=== PATIENT | female | born 1960 | race Caucasian/White ===

== ENCOUNTER → 2017-07-26 16:24 | Outpatient (CLI) | payer BC, SELFPAY ==
--- NOTE | 2017-07-26 16:33 | XR_ITS ---
XR chest 2V HISTORY: ITS.REASON: COUGH,FEVER,ASTHMA ORDERING PHYSICIAN: Branden Gavin PATIENT AGE: 57 years COMPARISON: None available FINDINGS: The cardiomediastinal silhouette and pulmonary vascularity are within normal limits. No lobar consolidation or collapse is evident. There is evidence of old granulomatous disease. A focal area of increased density is present in the right upper lobe overlying the vertebrae of anteriorly. This could be related to an area of postinflammatory scarring however, developing spiculated lesion is an additional consideration. There are no old films available for comparison. Since no old films are available then, would recommend chest CT for further evaluation especially if the patient is a smoker or has been exposed to secondhand smoke.. There is mild kyphosis of the upper thoracic spine with minimal wedging involving what appears to represent T5 and T6 age indeterminate. IMPRESSION: 1. No acute finding. 2. Irregular density right upper lobe which could be due to scarring or developing nodule. Follow-up suggested. 3. Old granulomatous disease 4. Minimal wedging of T5 and T6
== END ==
PROVIDERS: PCP Internal Medicine; Visit Provider Internal Medicine
DX: R05 Cough (principal); R50.9 Fever, unspecified; J45.909 Unspecified asthma, uncomplicated
CPT/HCPCS: 71046

== ENCOUNTER → 2023-02-08 11:22 | Outpatient (CLI) | payer BC, SELFPAY ==
--- NOTE | 2023-02-08 11:33 | XR_ITS ---
FINAL REPORT CLINICAL HISTORY: ASTHMA AND COUGH COMPARISON: July 2017 FINDINGS: PA and lateral views of the chest were obtained. The cardiac and mediastinal silhouettes are within normal limits. There is granulomatous disease and emphysematous change. The lungs are otherwise clear. There is no pleural effusion or pneumothorax. No acute osseous abnormality is identified. IMPRESSION: No radiographic evidence of acute cardiac or pulmonary disease. Reviewed, Interpreted and Dictated by Gloria Sands MD Transcribed by Evans Anderson Authenticated and [facility]
[2023-02-08 13:14] LABS: Basophils % 0.6 % (0.1-2.0); Eosinophils # 0.1 K/mm3 (0.0-0.4); Eosinophils % 2.5 % (0.1-12.0); Hematocrit 34.9 % (37.0-47.0); Hemoglobin 11.3 g/dL (12.2-16.2); Lymphocytes # 1.2 K/mm3 (0.7-4.5); Lymphocytes % 30.1 % (10-50); Mean Corpuscular HGB Conc 32.2 g/dL (31.8-35.4); Mean Corpuscular Hemoglobin 28.5 pg (27.0-31.2); Mean Corpuscular Volume 88.6 fl (81-99); Mean Platelet Volume 9.3 fl (7.4-10.4); Monocytes # 0.2 K/mm3 (0.1-1.0); Monocytes % 4.8 % (1.7-9.3); Neutrophils # 2.4 K/mm3 (1.8-7.8); Platelet Count 260 K/mm3 (142-424); Red Blood Count 3.94 M/mm3 (4.20-5.40); Red Cell Distribution Width 13.3 % (11.5-17.5); White Blood Count 3.8 K/mm3 (4.8-10.8)
[2023-02-08 13:45] LABS: Alanine Aminotransferase 31 U/L (12-78); Albumin Level 4.3 g/dl (3.5-5.0); Albumin/Globulin Ratio 1.4 (1.1-1.8); Alkaline Phosphatase 112 U/L (38-126); Anion Gap 10.6 mEq/L (5-15); Aspartate Amino Transferase 39 U/L (14-36); Bilirubin,Total 0.4 mg/dl (0.2-1.3); Blood Urea Nitrogen 18 mg/dl (7-17); Calcium 9.3 mg/dl (8.4-10.2); Carbon Dioxide 30 mmol/L (22.0-30.0); Chloride 105 mmol/L (98-107); Chol/HDL Ratio 3.1 (1-3.5); Cholesterol 248 mg/dl (140-200); Estimated Glomerular Filt Rate 50 ml/min (>60); GFR (African American) 61 ML/MIN (>60); Glucose 89 mg/dl (74-100); HDL Cholesterol 79 mg/dl (40-60); Potassium 4.6 mmoL/L (3.5-5.1); Sodium 141 mmol/L (136-145); Total Protein,Serum 7.3 g/dl (6.3-8.2); Triglycerides 61 mg/dl (30-150); VLDL Cholesterol 12 mg/dL (0-40)
[2023-02-08 13:56] LABS: Direct LDL Cholesterol 128.49 mg/dL (100-129)
[2023-02-08 14:16] LABS: Thyroid Stimulating Hormone 0.85 uIU/mL (0.465-4.68)
[2023-02-08 14:35] LABS: Vitamin B12 848 pg/mL (239-931)
== END ==
PROVIDERS: PCP Internal Medicine; Visit Provider Internal Medicine
DX: J45.909 Unspecified asthma, uncomplicated (principal); R05.9 Cough, unspecified
CPT/HCPCS: 71046; 80053; 80061; 82607; 84443; 85025

== ENCOUNTER 2023-05-21 14:37 | Emergency (ER) | payer BC, SELFPAY ==
[2023-05-21 14:45] VITALS: BP 118/67; PULSE 76; RESP 18; TEMP 36.7; O2SAT 96; BMI 25.2
--- NOTE | 2023-05-21 15:04 | EXP.UTC ---
Discharge Plan Disposition Patient Disposition: Home, Self-Care Condition: Good Prescriptions Prescriptions: New amoxicillin [amoxicillin] 500 mg tablet 500 mg PO BID 10 Days Qty: 20 0RF ofloxacin 0.3 % drops See Rx Instructions .ROUTE .COMPLEX Qty: 5 0RF Rx Instructions: put 1 drp into affected eye(s) every 4 h x 2 days, then 1 drp 4 times/day days 3-7 Referrals Follow up/Referrals: Branden Gavin MD [Primary Care Provider] - See instructions Activity Restrictions/Add. Instructions Additional Instructions/Restrictions: Start antibiotic patient to take as ordered for a full length of time even if you feel better. Sinus infections do not get better overnight. It may take 2-3 days to notice much improvement so be sure to use conservative measures as discussed for symptoms. Flonase 1 spray each nostril daily to help with nasal congestion, sinus and ear pressure/information Increase fluids Humidifier/vaporizer as needed Tylenol and ibuprofen as needed for fever or pain. If symptoms do not improve or get worse return or be seen in the ER Follow-up with primary care this week Clinical Impressions Clinical Impression: Iva eye disease of both eyes Sinus infection Qualifiers: Sinusitis location: maxillary Chronicity: acute Recurrence: non-recurrent Qualified Code(s): J01.00 - Acute maxillary sinusitis, unspecified Instructions Patient Instructions: DI for Sinusitis, DI for Conjunctivitis Discharge ED Provider: Oliver ([facility] [facility] [place] General Stated complaint: bilateral eye redness Mode of Arrival: Ambulatory Source of Information: Patient Limitations: No Limitations Time Seen by Provider: 05/21/23 15:04 Description of Symptoms (Recalled from Triage Doc. by RN): bilateral pink eye, and sinus infection. She has sinus pressure. HEENT Symptoms (Recalled from RN notes): Yes Resp Symptoms (Recalled from RN notes): No Skin Symptoms (Recalled from RN notes): No MS Symptoms (Recalled from RN notes): No Functional Status (Recalled from RN notes): n/a History of Present Illness Provider Complaint: 62 yr old female presents for becca eye redness, green drainage, sinus pressure,sinus pain and ear pain Related Data Previous Rx's Medication Instructions Recorded amoxicillin 500 mg tablet 500 mg PO BID 10 days #20 tabs 05/21/23 ofloxacin 0.3 % eye drops See Rx Instructions ophthalmic 05/21/23 (eye) .COMPLEX #5 mL Allergies Allergy/AdvReac Type Severity Reaction Status Date / Time Sulfamethoxazole Allergy Mild Uncoded 05/21/23 14:55 Worker's Comp Is this a Worker's Comp case?: [facility] Disclaimer: The information contained in this section may have been updated after the patient was seen, as this information can be updated by other users. Social History , [employer] DEVELOPER) Smoking Status: Never smoker alcohol intake: never substance use type: denies use current occupational status: employed Travel in the last 8 weeks: None household members: family housing: house ROS Obtained: Yes All systems reviewed & no additional complaints except as documented Constitutional Constitutional: Reports system reviewed and no additional complaints, except as documented and Reports as per HPI Eyes Eyes: Reports system reviewed and no additional complaints, except as documented, Reports as per HPI, Reports eye discharge and Reports itchy eyes ENT Ears, Nose, Mouth, and Throat: Reports system reviewed and no additional complaints, except as documented, Reports as per HPI, Reports nasal congestion, Reports nasal discharge, Reports sinus pain, Reports sinus pressure and Reports sore throat Cardiovascular Cardiovascular: Reports system reviewed and no additional complaints, except as documented Respiratory Respiratory: Reports system reviewed and no additional complaints, except as documented Integumentary/Breasts Skin/Breast: Reports system reviewed
[2023-05-21 15:25] VITALS: BP 118/67; PULSE 76; RESP 18; TEMP 36.7; O2SAT 96
== END 2023-05-21 15:25 | disposition home or self-care (01) ==
PROVIDERS: Emergency Provider Nurse Practitioner Family; PCP Internal Medicine
DX: J01.00 Acute maxillary sinusitis, unspecified (principal); H10.33 Unspecified acute conjunctivitis, bilateral; H92.03 Otalgia, bilateral
CPT/HCPCS: 99204; 99212; G0463

== ENCOUNTER 2023-11-09 11:03 | Outpatient (CLI) | payer BC, SELFPAY ==
--- NOTE | 2023-11-09 11:07 | XR_ITS ---
FINAL REPORT CLINICAL HISTORY: LT LEG INJURY 11/07/23,LT LEG AND ANKLE PAIN COMPARISON: None FINDINGS: 3 images of the left knee were obtained. There is no evidence of fracture or dislocation. The joint spaces are intact. There is no soft tissue abnormality identified. IMPRESSION: No acute bony abnormality. Reviewed, Interpreted and Dictated by Arjun Pritchett MD Transcribed by Ivy Bentley Authenticated and [facility]
--- NOTE | 2023-11-09 11:07 | XR_ITS ---
FINAL REPORT CLINICAL HISTORY: LT LEG INJURY 11/07/23,LT LEG AND ANKLE PAIN COMPARISON: None FINDINGS: Two images of the left tibia and fibula were obtained. There is no evidence of fracture or dislocation. The joint spaces are intact. There is no soft tissue abnormality identified. IMPRESSION: No acute bony abnormality. Reviewed, Interpreted and Dictated by Arjun Pritchett MD Transcribed by Ivy Bentley Authenticated and [facility]
--- NOTE | 2023-11-09 11:07 | XR_ITS ---
FINAL REPORT CLINICAL HISTORY: LT LEG INJURY 11/07/23,LT LEG AND ANKLE PAIN COMPARISON: None FINDINGS: 3 images of the left ankle were obtained. There is no evidence of fracture or dislocation. The joint spaces are intact. There is no soft tissue abnormality identified. IMPRESSION: No acute bony abnormality. Reviewed, Interpreted and Dictated by Arjun Pritchett MD Transcribed by Ivy Bentley Authenticated and [facility]
== END 2023-11-09 23:59 | disposition home or self-care (01) ==
LOC: RAD 11:04
PROVIDERS: PCP Internal Medicine; Visit Provider Internal Medicine
DX: M25.571 Pain in right ankle and joints of right foot (principal); M25.572 Pain in left ankle and joints of left foot; M79.605 Pain in left leg; S89.92XA Unspecified injury of left lower leg, initial encounter
CPT/HCPCS: 73562; 73590; 73610

== ENCOUNTER 2024-02-08 17:26 | Emergency (ER) | payer BC, SELFPAY ==
[2024-02-08 17:30] VITALS: BP 137/66; PULSE 72; RESP 18; TEMP 36.6; O2SAT 97; BMI 24.7
--- NOTE | 2024-02-08 17:37 | ED_ITS ---
Discharge Plan Disposition Patient Disposition: Home, Self-Care Condition: Good Prescriptions Prescriptions: New mupirocin 2 % ointment 1 applic topical TID 7 Days Qty: 15 0RF clindamycin HCl 300 mg capsule 300 mg PO Q8H Qty: 30 0RF Referrals Follow up/Referrals: Branden Gavin MD [Primary Care Provider] - See instructions Activity Restrictions/Add. Instructions Additional Instructions/Restrictions: Keep the affected area clean and dry. Follow up with your regular doctor. Take the antibiotics as directed and apply the topical antibiotics as directed. Apply warm wet compresses to the affected area three or four times per day. GO TO THE ER FOR ANY WORSENING SYMPTOMS Clinical Impressions Clinical Impression: Abscess of skin, Cellulitis of right arm Instructions Patient Instructions: Cellulitis, DI for Skin Abscess Discharge ED Provider: Primitivo Ayala [facility] General Stated complaint: right arm insect bite Time Seen by Provider: 02/08/24 17:37 History of Present Illness Provider Complaint: She states that for the past 4 days she has had a red swollen area on her right arm. She has redness around the site. Related Data Previous Rx's Medication Instructions Recorded clindamycin HCl 300 mg capsule 300 mg PO Q8H #30 caps 02/08/24 mupirocin 2 % topical ointment 1 applic topical TID 7 days #15 02/08/24 grams Allergies Allergy/AdvReac Type Severity Reaction Status Date / Time Sulfa (Sulfonamide Allergy Verified 02/08/24 17:45 Antibiotics) [facility] Disclaimer: The information contained in this section may have been updated after the patient was seen, as this information can be updated by other users. 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) Smoking Status: Never smoker alcohol intake: never substance use type: denies use current occupational status: employed Travel in the last 8 weeks: None household members: family housing: house ROS Obtained: Yes All systems reviewed & no additional complaints except as documented Constitutional Constitutional: Denies chills and Denies fever(s) Eyes Eyes: Denies eye discharge ENT Ears, Nose, Mouth, and Throat: Denies dizziness, Denies otalgia and Denies sore throat Cardiovascular Cardiovascular: Denies chest pain Respiratory Respiratory: Denies shortness of breath, Denies chest congestion, Denies cough, Denies stridor and Denies wheezing Gastrointestinal Gastrointestingal: Denies nausea or vomiting Musculoskeletal Musculoskeletal: Reports system reviewed and no additional complaints, except as documented and Denies arthralgias Integumentary/Breasts Skin/Breast: Reports as per HPI Neurologic Neurologic: Denies dizziness and Denies paresthesias Allergic/Immunologic Allergic/Immunologic: Denies wheezing Physical Exam General General appearance: alert and in no apparent distress Head Head exam: atraumatic, normocephalic and normal inspection Eye Eye exam: Present normal appearance, PERRL and EOMI ENT ENT exam: Present normal exam, normal oropharynx, mucous membranes moist, TM's normal bilaterally and normal external ear exam Neck Neck exam: Present normal inspection, full ROM and trachea midline; Absent meningismus or lymphadenopathy Chest Chest inspection: Present normal inspection and symmetric chest wall rise; Absent tenderness Respiratory Respiratory exam: Present normal lung sounds bilaterally; Absent respiratory distress Cardiovascular Cardiovascular exam: Present regular rate and normal rhythm; Absent JVD Abdominal Exam Abdominal exam: Present soft and normal bowel sounds; Absent distention, tenderness or guarding Extremities Exam Extremities exam: Present normal inspection, full ROM and normal capillary refill; Absent calf tenderness Back Exam Back exam: Present normal inspection; Absent tenderness Neurological Exam Neurological exam: Present alert and oriented X3 Psychiatric Psychiatric exam: Present normal affect and normal mood Skin Skin exam: Present erythema (there is an area of redness on her right forearm that measures 4 cm diameter. it has a small open area in its center. there is no drainage. ) Lymphatic Lymphatic Findings: no adenopathy Medical Decision Making Medical Records Medical records reviewed: No I reviewed the patient's medical records. [place] Inquiry Pt receiving controlled substance: No
[2024-02-08 18:04] VITALS: BP 137/66; PULSE 72; RESP 18; TEMP 36.6; O2SAT 97
--- NOTE | 2024-02-13 18:28 | PC.NURSE ---
REVIEWED WOUND CULTURE RESULTS WITH Ronit HAIDER APRN. NO CHANGE NEEDED
== END 2024-02-08 18:09 | disposition home or self-care (01) ==
PROVIDERS: Emergency Provider Nurse Practitioner Family; PCP Internal Medicine
DX: L02.413 Cutaneous abscess of right upper limb (principal); B95.7 Other staphylococcus as the cause of diseases classified elsewhere; L03.113 Cellulitis of right upper limb
CPT/HCPCS: 87070; 87077; 87186; 87205; 99212; 99214; G0463

== ENCOUNTER 2024-07-08 14:17 | Emergency (ER) | payer BC, SELFPAY ==
--- NOTE | 2024-07-08 15:10 | ED_ITS ---
Discharge Plan Disposition Patient Disposition: Home, Self-Care Condition: Good Prescriptions Prescriptions: New azithromycin [Zithromax] 250 mg tablet 250 mg PO UD DOSE PK Qty: 6 0RF Rx Instructions: Take two (2) tablets today, then one (1) tablet days #2 thru #5 benzonatate 100 mg capsule 100 mg PO TIDP PRN (Reason: Cough) Qty: 30 0RF methylprednisolone 4 mg Tablets,Dose Pack 4 mg PO DIRECTED 6 Days Qty: 21 0RF Rx Instructions: Take 1 pack as directed for 6 days No Action albuterol sulfate 90 mcg/actuation HFA aerosol inhaler 1 inh inhalation QID Qty: 6.7 2RF azithromycin [Zithromax Z-Ceferino] 250 mg tablet See Rx Instructions PO .COMPLEX Qty: 6 0RF Rx Instructions: For 250 mg dose pack: take 500 mg today (day 1), then 250 mg for 4 days (days 2-5) PO Referrals Follow up/Referrals: Branden Gavin MD [Primary Care Provider] - See instructions Activity Restrictions/Add. Instructions Additional Instructions/Restrictions: Drink plenty of fluids. Take tylenol or ibuprofen for pain or fever. Take the medications as directed. Follow up with your regular doctor. GO TO THE ER FOR ANY WORSENING SYMPTOMS Don't start the oral steroids (medrol dose pack) until tomorrow since you had the shot here Clinical Impressions Clinical Impression: Sinusitis Instructions Patient Instructions: Sinusitis, DI for Sinusitis Print Language Print Language: Greek Discharge ED Provider: Primitivo Ayala [facility] General Stated complaint: congestion, cough Time Seen by Provider: 07/08/24 15:09 Related Data Previous Rx's ?Medication ?Instructions ?Recorded albuterol sulfate 90 mcg/actuation 1 inh inhalation QID #6.7 grams 04/13/24 aerosol inhaler azithromycin 250 mg tablet See Rx Instructions PO .COMPLEX #6 04/13/24 (Zithromax Z-Ceferino) tabs azithromycin 250 mg tablet 250 mg PO UD DOSE PK #6 tabs 07/08/24 (Zithromax) benzonatate 100 mg capsule 100 mg PO TIDP PRN Cough #30 caps 07/08/24 methylprednisolone 4 mg tablets in 4 mg PO DIRECTED 6 days #21 tabs 07/08/24 a dose pack Allergies Allergy/AdvReac Type Severity Reaction Status Date / Time Sulfa (Sulfonamide Allergy Verified 04/13/24 15:59 Antibiotics) [facility] Disclaimer: The information contained in this section may have been updated after the patient was seen, as this information can be updated by other users. Medical History Asthma Surgical History History of tubal ligation History of hysterectomy History of tonsillectomy History of section Social History Smoking Status: Never smoker alcohol intake: never substance use type: denies use current occupational status: employed Travel in the last 8 weeks: None household members: family housing: house Have you lived/traveled outside [place] in past 30 days?: No Contact w/someone who lives/traveled outside US past 30 days?: No Exposure to someone with infectious disease in past 14 days?: No Do you have a fever (greater than 100.4 F or 38 C)?: No Have you tested positive for COVID-19: No Exposed to someone with COVID-19 in past 14 days?: No Do you have a sore throat?: No Do you have a cough?: Yes Do you have any weakness?: No Do you have any diarrhea?: No Are you experiencing any unusual bleeding?: No Do you have any muscle aches/pain?: No Do you have any abdominal pain?: No Are you experiencing loss of taste or smell?: No ROS Obtained: Yes All systems reviewed & no additional complaints except as documented Constitutional Constitutional: Reports poor appetite Eyes Eyes: Reports system reviewed and no additional complaints, except as documented ENT Ears, Nose, Mouth, and Throat: Reports as per HPI Cardiovascular Cardiovascular: Reports system reviewed and no additional complaints, except as documented and Denies chest pain Respiratory Respiratory: Denies shortness of breath, Denies chest congestion, Reports cough, Denies stridor and Denies wheezing Gastrointestinal Gastrointestingal: Reports system reviewed and no additional complaints, except as documented; Denies abdominal pain, diarrhea or vomiting Musculoskeletal Musculoskeletal: Reports system reviewed and no additional complaints, except as documented and Denies arthralgias Integumentary/Breasts Skin/Breast: Reports system reviewed and no additional complaints, except as documented and Denies rash Neurologic Neurologic: Denies paresthesias Allergic/Immunologic Allergic/Immunologic: Denies wheezing Physical Exam General General appearance: alert and in no apparent distress Head Head exam: atraumatic, normocephalic and normal inspection Eye Eye exam: Present normal appearance, PERRL and EOMI ENT ENT exam: Present normal exam, normal oropharynx, mucous membranes moist, TM's normal bilaterally and normal external ear exam Neck Neck exam: Present normal inspection, full ROM and trachea midline; Absent meningismus or lymphadenopathy Chest Chest inspection: Present normal inspection and symmetric chest wall rise; Absent tenderness Respiratory Respiratory exam: Present normal lung sounds bilaterally; Absent respiratory distress Cardiovascular Cardiovascular exam: Present regular rate and normal rhythm; Absent JVD Abdominal Exam Abdominal exam: Present soft and normal bowel sounds; Absent distention, tenderness or guarding Extremities Exam Extremities exam: Present normal inspection, full ROM and normal capillary refill; Absent calf tenderness Back Exam Back exam: Present normal inspection; Absent tenderness Neurological Exam Neurological exam: Present alert and oriented X3 Psychiatric Psychiatric exam: Present normal affect and normal mood Skin Skin exam: Present warm, dry, intact and normal color Lymphatic Lymphatic Findings: no adenopathy Medical Decision Making Medical Records Medical records reviewed: No I reviewed the patient's medical records. Screening: Per USPSTF and CDC recommendations, given the prevalence of disease in our region, it is our hospital?s policy to screen for HIV and viral Hepatitis for all patients aged 18 and over and those with ongoing risk factors. [place] Inquiry Pt receiving controlled substance: No Lab Data Lab results reviewed: Yes I reviewed the patient's lab results.
[2024-07-08 15:23] VITALS: BP 122/50; PULSE 87; RESP 18; TEMP 36.6; O2SAT 99; BMI 24.7
[2024-07-08] MEDS: DEXAMETHASONE 4MG/ML 1ML VIAL 8 MG IM (15:37)
[2024-07-08] MEDS: LIDOCAINE 1% 5ML PF VIAL IM (15:37)
[2024-07-08] MEDS: cefTRIAXone 1GM VIAL 1 GM IM (15:37)
[2024-07-08 16:06] VITALS: BP 122/50; PULSE 87; RESP 18; TEMP 36.6
== END 2024-07-08 16:07 | disposition home or self-care (01) ==
PROVIDERS: Emergency Provider Nurse Practitioner Family; PCP Internal Medicine
DX: J01.90 Acute sinusitis, unspecified (principal); R09.81 Nasal congestion; R05.9 Cough, unspecified; R63.8 Other symptoms and signs concerning food and fluid intake
CPT/HCPCS: 99212; G0381; J0696; J1100

== ENCOUNTER 2024-08-14 14:41 | Outpatient (CLI) | payer BC, SELFPAY ==
--- NOTE | 2024-08-14 14:45 | XR_ITS ---
FINAL REPORT CLINICAL HISTORY: Fall on back, lower back pain COMPARISON: None FINDINGS: LUMBAR SPINE: AP and lateral views of the lumbar spine were obtained. There is no prior exam for comparison. There is no acute fracture. There is grade 1-2 spondylolisthesis of L5 on S1, with bilateral pars defects. Vertebral body height is preserved. Advanced degenerative disc disease is present at the L5-S1 level with vacuum phenomenon. No acute paraspinal abnormality. IMPRESSION: Degenerative change primarily at the L5-S1 level with advanced degenerative disc disease, grade 1-2 spondylolisthesis, and bilateral pars defects. Reviewed, Interpreted and Dictated by Arjun Pritchett MD Transcribed by Ivy Bentley Authenticated and [facility]
== END 2024-08-14 23:59 | disposition home or self-care (01) ==
LOC: RAD 14:43
PROVIDERS: PCP Internal Medicine; Visit Provider Internal Medicine
DX: M54.50 Low back pain, unspecified (principal); W19.XXXA Unspecified fall, initial encounter
CPT/HCPCS: 72100